=== PATIENT | female | born 1955 | race African-American/Black ===

== ENCOUNTER → 2016-07-18 | Outpatient (CLI) | payer OTHER ==
[~2016-07-18] MED LIST: AZO MENOPAUSE1 X PO; DETROL LA4 MG PO; Ecotrin325 MG PO; METOPROLOL SR25 MG PO; OXYBUTYNIN CHLOR5 M1 PO; OXYBUTYNIN5 MG PO; PRAVACHOL40 MG PO; SUPER B-50 COM1 EAC1 PO; SYNTHROID0.088 MG PO; TOPROL XL25 MG PO; [UNRECOGNIZED DRUG - OTHER] PO
[2016-07-18 09:36] LABS: ALBUMIN 4.1 gm/dl (3.1-4.5); ALKALINE PHOSPHATASE 91 U/L (45-117); BILIRUBIN, TOTAL 0.6 mg/dl (0.2-1.0); BUN 19 mg/dl (7-24); CARBON DIOXIDE 31 mmol/L (21-32); CHLORIDE 105 mmol/L (98-107); CHOLESTEROL 135 mg/dL (<200); EST GLOM FILT AFRICAN AMERICAN > 60 ml/min; FREE T4 0.98 ng/dl (0.76-1.46); GLUCOSE 99 mg/dL (65-99); HDL CHOLESTEROL 71 mg/dl (40-60); LDL CHOLESTEROL 52 mg/dL (9-159); POTASSIUM 3.7 mmol/L (3.5-5.1); SGOT/AST 17 IU/L (3-35); SGPT/ALT 26 U/L (12-78); SODIUM 144 mmol/L (136-145); TOTAL PROTEIN 7.4 gm/dL (6.4-8.2); TRIGLYCERIDES 62 mg/dl (<150); VLDL CHOLESTEROL 12 mg/dL (6-40)
== END | disposition home or self-care (01) ==
LOC: LAB 01:54
PROVIDERS: Internal Medicine Endocrinology, Diabetes & Metabolism
DX: E78.2 Mixed hyperlipidemia (principal); E78.1 Pure hyperglyceridemia; E89.0 Postprocedural hypothyroidism

== ENCOUNTER → 2017-01-07 | Outpatient (CLI) | payer OTHER ==
[2017-01-07 16:03] LABS: ALBUMIN 4.1 gm/dl (3.1-4.5); BUN 25 mg/dl (7-24); CHLORIDE 103 mmol/L (98-107); CHOLESTEROL 149 mg/dL (<200); CREATININE 0.96 mg/dL (0.55-1.02); POTASSIUM 3.9 mmol/L (3.5-5.1); SGOT/AST 17 IU/L (3-35); SGPT/ALT 24 U/L (12-78); SODIUM 140 mmol/L (136-145); TOTAL PROTEIN 7.7 gm/dL (6.4-8.2); VLDL CHOLESTEROL 7 mg/dL (6-40)
[2017-01-07 16:08] LABS: ALKALINE PHOSPHATASE 84 U/L (45-117); FREE T4 1.29 ng/dl (0.76-1.46); HDL CHOLESTEROL 76 mg/dl (40-60); LDL CHOLESTEROL 66 mg/dL (9-159)
== END | disposition home or self-care (01) ==
LOC: LAB 02:01
PROVIDERS: Internal Medicine Endocrinology, Diabetes & Metabolism
DX: E03.9 Hypothyroidism, unspecified (principal); E78.2 Mixed hyperlipidemia

== ENCOUNTER → 2017-01-13 | Outpatient (CLI) | payer OTHER | END | disposition home or self-care (01) | LOC: RAD 13:34 | DX: M54.5 Low back pain (principal) ==

== ENCOUNTER → 2018-11-23 | Outpatient (CLI) | payer OTHER ==
--- NOTE | ~2018-11-23 | EKG ---
[place], [place] ELECTROCARDIOGRAM REPORT NAME: JANET VALDEZ UNIT #: [id number] ROOM: DOCTOR: EPIPHANY DRAFT REPORT BIRTHDATE: [address] [facility] Test Date: 2018-11-23 Test Time: 10:09:51 Pat Name: JANET VALDEZ Department: Room: Gender: F Paving Foreman: Naomy Fuentes : 1955 Requested By: BLAINE BARROS Order Number: [id number] Reading MD: Memo Fitzpatrick MD Measurements Intervals [place] Rate: 71 P: -25 WA: 170 QRS: -21 QRSD: 72 T: -15 QT: 377 QTc: 410 Interpretive Statements Sinus rhythm Borderline left axis deviation Nonspecific T abnormalities, anterior leads Electronically Signed On 11-23-2018 9:12:02 PDT by Memo Fitzpatrick MD CM:EKGRPT:ELECTROCARDIOGRAM REPORT [id number] BLAINE MCCRARY DRAFT REPORT BLAINE BARROS MD
== END | disposition home or self-care (01) ==
LOC: CARD 11-20 00:41
DX: R07.9 Chest pain, unspecified (principal)

== ENCOUNTER → 2020-03-08 | Outpatient (CLI) | payer OTHER | END | disposition home or self-care (01) | LOC: COVID19 16:02 | PROVIDERS: ATTEND Internal Medicine | DX: U07.1 COVID-19 (principal) ==

== ENCOUNTER → 2022-03-04 | Outpatient (CLI) | payer MEDICARE ==
[2022-03-04 13:23] LABS: CREATININE 0.87 mg/dL (0.55-1.02)
== END | disposition home or self-care (01) ==
LOC: LAB 12:41
PROVIDERS: ATTEND Internal Medicine
DX: Z01.812 Encounter for preprocedural laboratory examination (principal); N81.10 Cystocele, unspecified; K58.9 Irritable bowel syndrome, unspecified; R19.7 Diarrhea, unspecified

== ENCOUNTER → 2022-03-05 | Outpatient (CLI) | payer MEDICARE | END | disposition home or self-care (01) | LOC: CT 00:23 | PROVIDERS: ATTEND Internal Medicine | DX: N20.0 Calculus of kidney (principal); K58.9 Irritable bowel syndrome, unspecified; R19.7 Diarrhea, unspecified; N81.10 Cystocele, unspecified; K57.30 Diverticulosis of large intestine without perforation or abscess without bleeding ==

== ENCOUNTER → 2022-04-18 | Outpatient (CLI) | payer MEDICARE | END | disposition home or self-care (01) | LOC: US 01:13 | PROVIDERS: ATTEND Internal Medicine | DX: I65.23 Occlusion and stenosis of bilateral carotid arteries (principal); I10 Essential (primary) hypertension ==

== ENCOUNTER → 2023-01-14 | Outpatient (CLI) | payer MEDICARE | END | disposition home or self-care (01) | LOC: CARD 00:22 | PROVIDERS: ATTEND Internal Medicine | DX: I31.9 Disease of pericardium, unspecified (principal); R06.02 Shortness of breath; Z86.73 Personal history of transient ischemic attack (TIA), and cerebral infarction without residual deficits ==

== ENCOUNTER → 2023-01-17 | Outpatient (CLI) | payer MEDICARE | END | disposition home or self-care (01) | LOC: CARD 00:51 | PROVIDERS: ATTEND Internal Medicine | DX: I31.9 Disease of pericardium, unspecified (principal); R06.02 Shortness of breath ==